=== PATIENT | female | born 1945 | race Caucasian/White ===

== ENCOUNTER 2023-02-27 14:16 | Inpatient (IN) | payer MEDICARE ==
[2023-02-27] MEDS ORDERED: traMADol HCl 50 MG TAB PO PRN (16:33)
[2023-02-27] MEDS ORDERED: Artificial Tear Sol 15 ML BOT EA EYE PRN (16:34)
[2023-02-27] MEDS ORDERED: Benzocaine/Menthol 1 LOZ LOZ PO PRN (16:34)
[2023-02-27] MEDS ORDERED: cloNIDine 0.1 MG TAB PO PRN (16:34)
[2023-02-27] MEDS ORDERED: Sodium Chloride 0.65% Nasal 44 ML BOT EA NARE PRN (16:34)
[2023-02-27] MEDS ORDERED: Benzonatate 100 MG CAP PO PRN (16:34)
[2023-02-27] MEDS ORDERED: Guaifenesin DM 100-10/5 ML UDCUP PO PRN (16:34)
[2023-02-27] MEDS ORDERED: Bisacodyl 5 MG TAB PO PRN (16:34)
[2023-02-27] MEDS ORDERED: Acetaminophen 650 MG Suppository PR PRN (16:34)
[2023-02-27] MEDS ORDERED: Senokot S 8.6-50 MG TAB PO PRN (16:34)
[2023-02-27] MEDS ORDERED: Calcium Carbonate 500 MG ChewTAB PO PRN (16:34)
[2023-02-27] MEDS ORDERED: Bisacodyl 10 MG SUPP PR PRN (16:34)
[2023-02-27] MEDS: traZODone HCl 50 MG TAB PO SCH (20:40)
[2023-02-27] MEDS: Gemfibrozil 600 MG TAB PO SCH (20:40)
[2023-02-27] MEDS: Aspirin 81 mg Enteric Coated Tablet PO SCH (20:41)
[2023-02-27] MEDS: Gabapentin 300 MG CAP PO SCH (20:41)
[2023-02-27] MEDS: Acetaminophen 325 MG TAB PO PRN (20:42)
[2023-02-27] MEDS: Amlodipine 5 MG TAB PO SCH (20:43)
[2023-02-27] MEDS: Calcium Carbonate 600 MG + Vit D TAB PO SCH (20:43)
[2023-02-27] MEDS: Ascorbic Acid 500 mg Chewable Tablet PO SCH (20:44)
[2023-02-27] MEDS: Zolpidem Tartrate 5 MG TAB PO SCH (20:47)
[2023-02-27] MEDS: ALPRAZolam 0.25 MG TAB PO PRN (20:57)
[2023-02-27] MEDS: IRON BIS GLYCINAT PO SCH (21:39)
[2023-02-27] MEDS: [UNRECOGNIZED DRUG - OTHER] PO SCH (21:39)
[2023-02-27] MEDS: VIT C PO SCH (21:39)
[2023-02-27] MEDS: B12 PO SCH (21:39)
[2023-02-28 06:19] LABS: #Eosinphils 0.3 thou/uL (0.0-0.7); #Lymphocytes 0.7 thou/uL (1.20-3.40); #Monocytes 0.5 thou/uL (0.11-0.59); #Neutrophils 3.9 thou/uL (1.40-6.50); %Basophils 0.9 % (0.0-1.0); %Eosinophils 4.7 % (0.0-10.0); %Lymphocytes 13.3 % (21.0-51.0); %Neutrophils 72.2 % (42.0-75.0); Mean Corpuscular HGB CONC 32.1 g/dL (32.0-36.0); Mean Platelet Volume 7.6 fL (7.4-10.4); Platelet Count 195 10x3/uL (130-400); RBC Distribution Width 13.4 % (11.5-14.5); Red Blood Cell (RBC) Count 2.43 mill/uL (4.20-5.40); White Blood Cell (WBC) Count 5.4 10x3/uL (4.8-10.8)
[2023-02-28 06:33] LABS: ALT (SGPT) 14 U/L (8-55); AST (SGOT) 16 U/L (5-34); Albumin 3.4 g/dL (3.4-4.8); Alkaline Phosphatase 59 U/L (40-110); Anion Gap 12 mmol/L (10-20); BUN (Urea Nitrogen) 14 mg/dL (9.8-20.1); Bilirubin, Total 0.4 mg/dL (0.2-1.2); Calc. Creatinine Clearance 76 mL/min (70-130); Calcium 8.9 mg/dL (7.8-10.44); Carbon Dioxide 23 mmol/L (23-31); Chloride 107 mmol/L (98-107); Estimated GFR 87; Globulin 2.7 g/dL (2.4-3.5); Glucose 125 mg/dL (83-110); Potassium 4.1 mmol/L (3.5-5.1); Protein, Total 6.1 g/dL (5.8-8.1); Sodium 138 mmol/L (136-145)
[2023-02-28] MEDS: Ferrous Sulfate 325 MG TAB PO SCH ×3 (07:06→16:29)
[2023-02-28] MEDS: Gemfibrozil 600 MG TAB PO SCH ×2 (08:20→20:46)
[2023-02-28] MEDS: Aspirin 81 mg Enteric Coated Tablet PO SCH ×2 (08:20→20:46)
[2023-02-28] MEDS: Ramipril 5 MG CAP PO SCH (08:20)
[2023-02-28] MEDS: Ascorbic Acid 500 mg Chewable Tablet PO SCH ×2 (08:20→20:46)
[2023-02-28] MEDS: Calcium Carbonate 600 MG + Vit D TAB PO SCH ×2 (08:20→20:46)
[2023-02-28] MEDS: Gabapentin 300 MG CAP PO SCH ×3 (08:20→20:49)
[2023-02-28] MEDS: Sertraline 100 MG TAB PO SCH (08:21)
[2023-02-28] MEDS: Famotidine 20 MG TAB PO SCH (08:21)
[2023-02-28] MEDS: Fluticasone Propionate Nasal Spray 16 gm Bottle NASAL SCH (08:21)
[2023-02-28] MEDS: B12 PO SCH (09:04)
[2023-02-28] MEDS: IRON BIS GLYCINAT PO SCH (09:04)
[2023-02-28] MEDS: VIT C PO SCH (09:04)
[2023-02-28] MEDS: [UNRECOGNIZED DRUG - OTHER] PO SCH (09:04)
[2023-02-28] MEDS: Ondansetron ODT 4 MG TAB PO PRN (11:51)
[2023-02-28] MEDS ORDERED: Ibuprofen 400 MG TAB PO PRN (19:24)
[2023-02-28] MEDS: Zolpidem Tartrate 5 MG TAB PO SCH (20:46)
[2023-02-28] MEDS: traZODone HCl 50 MG TAB PO SCH (20:46)
[2023-02-28] MEDS: Amlodipine 5 MG TAB PO SCH (20:47)
[2023-02-28] MEDS: Acetaminophen 325 MG TAB PO PRN (20:48)
[2023-03-01] MEDS: Fluticasone Propionate Nasal Spray 16 gm Bottle NASAL SCH (07:50)
[2023-03-01] MEDS: Gabapentin 300 MG CAP PO SCH ×3 (07:51→20:17)
[2023-03-01] MEDS: Ramipril 5 MG CAP PO SCH (07:51)
[2023-03-01] MEDS: Gemfibrozil 600 MG TAB PO SCH ×2 (07:51→20:16)
[2023-03-01] MEDS: Famotidine 20 MG TAB PO SCH (07:52)
[2023-03-01] MEDS: Calcium Carbonate 600 MG + Vit D TAB PO SCH ×2 (07:52→20:16)
[2023-03-01] MEDS: Sertraline 100 MG TAB PO SCH (07:52)
[2023-03-01] MEDS: Ferrous Sulfate 325 MG TAB PO SCH ×2 (07:52→16:06)
[2023-03-01] MEDS: Aspirin 81 mg Enteric Coated Tablet PO SCH ×2 (07:52→20:16)
[2023-03-01] MEDS: Ascorbic Acid 500 mg Chewable Tablet PO SCH ×2 (07:52→20:16)
[2023-03-01 10:32] LABS: Bilirubin Negative (Negative); Blood, Urine Negative (Negative); Clarity Clear (Clear); Glucose, Urine (Dipstick) Negative (Negative); Ketone, Urine Negative (Negative); Leukocyte Negative (Negative); Nitrite Negative (Negative); Protein, Urine (Dipstick) Negative (Neg-Trace)
[2023-03-01] MEDS: Ibuprofen 200 MG TAB PO PRN (12:55)
[2023-03-01] MEDS: Zolpidem Tartrate 5 MG TAB PO SCH (20:16)
[2023-03-01] MEDS: traZODone HCl 50 MG TAB PO SCH (20:16)
[2023-03-01] MEDS: Amlodipine 5 MG TAB PO SCH (20:17)
[2023-03-01] MEDS: ALPRAZolam 0.25 MG TAB PO PRN (22:48)
[2023-03-02] MEDS: Ascorbic Acid 500 mg Chewable Tablet PO SCH ×2 (07:56→21:00)
[2023-03-02] MEDS: Fluticasone Propionate Nasal Spray 16 gm Bottle NASAL SCH (07:56)
[2023-03-02] MEDS: Gabapentin 300 MG CAP PO SCH ×3 (07:57→20:57)
[2023-03-02] MEDS: Gemfibrozil 600 MG TAB PO SCH ×2 (07:57→20:57)
[2023-03-02] MEDS: Sertraline 100 MG TAB PO SCH (07:58)
[2023-03-02] MEDS: Ramipril 5 MG CAP PO SCH (07:59)
[2023-03-02] MEDS: Famotidine 20 MG TAB PO SCH (07:59)
[2023-03-02] MEDS: Calcium Carbonate 600 MG + Vit D TAB PO SCH ×2 (08:00→20:59)
[2023-03-02] MEDS: Ferrous Sulfate 325 MG TAB PO SCH ×2 (08:00→17:18)
[2023-03-02] MEDS: Aspirin 81 mg Enteric Coated Tablet PO SCH ×2 (08:01→20:58)
[2023-03-02] MEDS: traMADol HCl 50 MG TAB PO PRN (08:22)
[2023-03-02] MEDS: ALPRAZolam 0.25 MG TAB PO PRN ×2 (08:22→15:43)
[2023-03-02] MEDS: Zolpidem Tartrate 5 MG TAB PO SCH (20:57)
[2023-03-02] MEDS: traZODone HCl 50 MG TAB PO SCH (20:59)
[2023-03-02] MEDS: Amlodipine 5 MG TAB PO SCH (20:59)
[2023-03-03] MEDS: Famotidine 20 MG TAB PO SCH (08:34)
[2023-03-03] MEDS: Aspirin 81 mg Enteric Coated Tablet PO SCH ×2 (08:34→21:26)
[2023-03-03] MEDS: Calcium Carbonate 600 MG + Vit D TAB PO SCH ×2 (08:34→21:26)
[2023-03-03] MEDS: Ascorbic Acid 500 mg Chewable Tablet PO SCH ×2 (08:34→21:26)
[2023-03-03] MEDS: Gemfibrozil 600 MG TAB PO SCH ×2 (08:34→21:26)
[2023-03-03] MEDS: Ferrous Sulfate 325 MG TAB PO SCH ×2 (08:34→17:11)
[2023-03-03] MEDS: Sertraline 100 MG TAB PO SCH (08:35)
[2023-03-03] MEDS: Ramipril 5 MG CAP PO SCH (08:36)
[2023-03-03] MEDS: Gabapentin 300 MG CAP PO SCH ×3 (08:36→21:24)
[2023-03-03] MEDS: Fluticasone Propionate Nasal Spray 16 gm Bottle NASAL SCH (08:37)
[2023-03-03] MEDS: Ibuprofen 200 MG TAB PO PRN (08:46)
[2023-03-03] MEDS: ALPRAZolam 0.25 MG TAB PO PRN ×2 (08:46→21:25)
[2023-03-03] MEDS: Amlodipine 5 MG TAB PO SCH (21:25)
[2023-03-03] MEDS: traZODone HCl 50 MG TAB PO SCH (21:25)
[2023-03-03] MEDS: Zolpidem Tartrate 5 MG TAB PO SCH (21:26)
[2023-03-03] MEDS: Acetaminophen 325 MG TAB PO PRN (21:34)
[2023-03-04] MEDS: Ferrous Sulfate 325 MG TAB PO SCH ×2 (08:47→16:39)
[2023-03-04] MEDS: Sertraline 100 MG TAB PO SCH (08:47)
[2023-03-04] MEDS: Gemfibrozil 600 MG TAB PO SCH ×2 (08:48→21:05)
[2023-03-04] MEDS: Ascorbic Acid 500 mg Chewable Tablet PO SCH ×2 (08:50→21:06)
[2023-03-04] MEDS: Famotidine 20 MG TAB PO SCH (08:50)
[2023-03-04] MEDS: Calcium Carbonate 600 MG + Vit D TAB PO SCH ×2 (08:51→21:06)
[2023-03-04] MEDS: Aspirin 81 mg Enteric Coated Tablet PO SCH ×2 (08:51→21:06)
[2023-03-04] MEDS: Gabapentin 300 MG CAP PO SCH ×3 (08:52→21:04)
[2023-03-04] MEDS: Ramipril 5 MG CAP PO SCH (08:52)
[2023-03-04] MEDS: Fluticasone Propionate Nasal Spray 16 gm Bottle NASAL SCH (08:54)
[2023-03-04 09:33] LABS: Anion Gap 16 mmol/L (10-20); BUN (Urea Nitrogen) 18 mg/dL (9.8-20.1); Calc. Creatinine Clearance 71 mL/min (70-130); Calcium 9.7 mg/dL (7.8-10.44); Carbon Dioxide 21 mmol/L (23-31); Chloride 108 mmol/L (98-107); Estimated GFR 80; Glucose 134 mg/dL (83-110); Potassium 3.9 mmol/L (3.5-5.1); Sodium 141 mmol/L (136-145)
[2023-03-04 10:02] LABS: #Basophils 0.1 thou/uL (0.0-0.2); #Eosinphils 0.4 thou/uL (0.0-0.7); #Lymphocytes 0.8 thou/uL (1.20-3.40); #Monocytes 0.3 thou/uL (0.11-0.59); #Neutrophils 4.9 thou/uL (1.40-6.50); %Eosinophils 6.1 % (0.0-10.0); %Lymphocytes 11.9 % (21.0-51.0); %Monocytes 4.9 % (0.0-10.0); %Neutrophils 76.1 % (42.0-75.0); Hematocrit 31.1 % (36.0-47.0); Mean Corpuscular HGB CONC 32.1 g/dL (32.0-36.0); Platelet Count 291 10x3/uL (130-400); RBC Distribution Width 15.8 % (11.5-14.5); Red Blood Cell (RBC) Count 2.85 mill/uL (4.20-5.40); White Blood Cell (WBC) Count 6.4 10x3/uL (4.8-10.8)
[2023-03-04] MEDS: ALPRAZolam 0.25 MG TAB PO PRN ×2 (15:07→21:06)
[2023-03-04] MEDS: traMADol HCl 50 MG TAB PO PRN (15:09)
[2023-03-04] MEDS: Amlodipine 5 MG TAB PO SCH (21:05)
[2023-03-04] MEDS: traZODone HCl 50 MG TAB PO SCH (21:05)
[2023-03-04] MEDS: Zolpidem Tartrate 5 MG TAB PO SCH (21:06)
[2023-03-05] MEDS: Ramipril 5 MG CAP PO SCH (08:25)
[2023-03-05] MEDS: Gemfibrozil 600 MG TAB PO SCH ×2 (08:26→20:29)
[2023-03-05] MEDS: Ascorbic Acid 500 mg Chewable Tablet PO SCH ×2 (08:26→20:31)
[2023-03-05] MEDS: Aspirin 81 mg Enteric Coated Tablet PO SCH ×2 (08:26→20:30)
[2023-03-05] MEDS: Famotidine 20 MG TAB PO SCH (08:26)
[2023-03-05] MEDS: Sertraline 100 MG TAB PO SCH (08:26)
[2023-03-05] MEDS: Gabapentin 300 MG CAP PO SCH ×3 (08:27→20:29)
[2023-03-05] MEDS: Fluticasone Propionate Nasal Spray 16 gm Bottle NASAL SCH (08:27)
[2023-03-05] MEDS: Calcium Carbonate 600 MG + Vit D TAB PO SCH ×2 (08:27→20:31)
[2023-03-05] MEDS: Ferrous Sulfate 325 MG TAB PO SCH ×2 (08:27→16:16)
[2023-03-05] MEDS: ALPRAZolam 0.25 MG TAB PO PRN (17:10)
[2023-03-05] MEDS: Zolpidem Tartrate 5 MG TAB PO SCH (20:29)
[2023-03-05] MEDS: traZODone HCl 50 MG TAB PO SCH (20:29)
[2023-03-05] MEDS: Amlodipine 5 MG TAB PO SCH (20:30)
[2023-03-06 06:26] LABS: #Basophils 0.1 thou/uL (0.0-0.2); #Eosinphils 0.3 thou/uL (0.0-0.7); #Lymphocytes 0.7 thou/uL (1.20-3.40); #Monocytes 0.4 thou/uL (0.11-0.59); #Neutrophils 4.6 thou/uL (1.40-6.50); %Basophils 1.3 % (0.0-1.0); %Eosinophils 5.2 % (0.0-10.0); %Lymphocytes 11.1 % (21.0-51.0); %Monocytes 7.2 % (0.0-10.0); %Neutrophils 75.2 % (42.0-75.0); Hematocrit 31.5 % (36.0-47.0); Hemoglobin 10.3 g/dL (12.0-16.0); Mean Corpuscular HGB CONC 32.7 g/dL (32.0-36.0); Mean Corpuscular Hemoglobin 35.3 pg (27.0-31.0); Mean Platelet Volume 8.5 fL (7.4-10.4); Platelet Count 312 10x3/uL (130-400); RBC Distribution Width 15.7 % (11.5-14.5); Red Blood Cell (RBC) Count 2.92 mill/uL (4.20-5.40); White Blood Cell (WBC) Count 6.1 10x3/uL (4.8-10.8)
[2023-03-06 06:34] LABS: Anion Gap 14 mmol/L (10-20); BUN (Urea Nitrogen) 15 mg/dL (9.8-20.1); Calc. Creatinine Clearance 72 mL/min (70-130); Calcium 9.6 mg/dL (7.8-10.44); Carbon Dioxide 26 mmol/L (23-31); Chloride 104 mmol/L (98-107); Estimated GFR 80; Glucose 113 mg/dL (83-110); Potassium 4.5 mmol/L (3.5-5.1); Sodium 139 mmol/L (136-145)
[2023-03-06] MEDS: Gabapentin 300 MG CAP PO SCH ×3 (08:42→20:30)
[2023-03-06] MEDS: Ramipril 5 MG CAP PO SCH (08:43)
[2023-03-06] MEDS: Gemfibrozil 600 MG TAB PO SCH ×2 (08:43→20:30)
[2023-03-06] MEDS: Famotidine 20 MG TAB PO SCH (08:43)
[2023-03-06] MEDS: Ferrous Sulfate 325 MG TAB PO SCH ×2 (08:43→17:27)
[2023-03-06] MEDS: Aspirin 81 mg Enteric Coated Tablet PO SCH ×2 (08:43→20:31)
[2023-03-06] MEDS: Calcium Carbonate 600 MG + Vit D TAB PO SCH ×2 (08:43→20:30)
[2023-03-06] MEDS: Fluticasone Propionate Nasal Spray 16 gm Bottle NASAL SCH (08:44)
[2023-03-06] MEDS: Ascorbic Acid 500 mg Chewable Tablet PO SCH ×2 (08:44→20:31)
[2023-03-06] MEDS: Sertraline 100 MG TAB PO SCH (08:44)
[2023-03-06] MEDS ORDERED: Ibuprofen 200 MG TAB ONE (11:20)
[2023-03-06] MEDS: Ibuprofen 200 MG TAB PO PRN ×2 (11:22→20:40)
[2023-03-06] MEDS: ALPRAZolam 0.25 MG TAB PO PRN (19:15)
[2023-03-06] MEDS: traZODone HCl 50 MG TAB PO SCH (20:29)
[2023-03-06] MEDS: Zolpidem Tartrate 5 MG TAB PO SCH (20:29)
[2023-03-06] MEDS: Amlodipine 5 MG TAB PO SCH (20:31)
[2023-03-07] MEDS: traMADol HCl 50 MG TAB PO PRN (09:20)
[2023-03-07] MEDS: ALPRAZolam 0.25 MG TAB PO PRN (09:21)
[2023-03-07] MEDS: Gabapentin 300 MG CAP PO SCH ×3 (09:22→21:22)
[2023-03-07] MEDS: Gemfibrozil 600 MG TAB PO SCH ×2 (09:22→21:22)
[2023-03-07] MEDS: Ramipril 5 MG CAP PO SCH (09:23)
[2023-03-07] MEDS: Calcium Carbonate 600 MG + Vit D TAB PO SCH ×2 (09:23→21:22)
[2023-03-07] MEDS: Famotidine 20 MG TAB PO SCH (09:24)
[2023-03-07] MEDS: Ascorbic Acid 500 mg Chewable Tablet PO SCH ×2 (09:25→21:22)
[2023-03-07] MEDS: Aspirin 81 mg Enteric Coated Tablet PO SCH ×2 (09:25→21:22)
[2023-03-07] MEDS: Sertraline 100 MG TAB PO SCH (09:25)
[2023-03-07] MEDS: Ferrous Sulfate 325 MG TAB PO SCH ×2 (09:26→16:23)
[2023-03-07] MEDS: Fluticasone Propionate Nasal Spray 16 gm Bottle NASAL SCH (09:28)
[2023-03-07] MEDS: traZODone HCl 50 MG TAB PO SCH (21:21)
[2023-03-07] MEDS: Zolpidem Tartrate 5 MG TAB PO SCH (21:21)
[2023-03-07] MEDS: Amlodipine 5 MG TAB PO SCH (21:21)
[2023-03-08] MEDS: Gabapentin 300 MG CAP PO SCH ×3 (08:01→20:43)
[2023-03-08] MEDS: Gemfibrozil 600 MG TAB PO SCH ×2 (08:02→20:43)
[2023-03-08] MEDS: Calcium Carbonate 600 MG + Vit D TAB PO SCH ×2 (08:02→20:46)
[2023-03-08] MEDS: Aspirin 81 mg Enteric Coated Tablet PO SCH ×2 (08:02→20:46)
[2023-03-08] MEDS: Ascorbic Acid 500 mg Chewable Tablet PO SCH ×2 (08:02→20:44)
[2023-03-08] MEDS: Ramipril 5 MG CAP PO SCH (08:02)
[2023-03-08] MEDS: Sertraline 100 MG TAB PO SCH (08:02)
[2023-03-08] MEDS: Famotidine 20 MG TAB PO SCH (08:02)
[2023-03-08] MEDS: Ferrous Sulfate 325 MG TAB PO SCH ×2 (08:02→16:47)
[2023-03-08] MEDS: Fluticasone Propionate Nasal Spray 16 gm Bottle NASAL SCH (08:04)
[2023-03-08] MEDS: Ibuprofen 200 MG TAB PO PRN ×2 (08:07→19:26)
[2023-03-08] MEDS: Ondansetron ODT 4 MG TAB PO PRN (09:32)
[2023-03-08] MEDS: ALPRAZolam 0.25 MG TAB PO PRN ×2 (11:57→20:43)
[2023-03-08] MEDS: traZODone HCl 50 MG TAB PO SCH (20:43)
[2023-03-08] MEDS: Zolpidem Tartrate 5 MG TAB PO SCH (20:43)
[2023-03-08] MEDS: Amlodipine 5 MG TAB PO SCH (20:46)
[2023-03-09] MEDS: Ramipril 5 MG CAP PO SCH (08:24)
[2023-03-09] MEDS: Famotidine 20 MG TAB PO SCH (08:24)
[2023-03-09] MEDS: Gabapentin 300 MG CAP PO SCH ×3 (08:24→20:16)
[2023-03-09] MEDS: Ascorbic Acid 500 mg Chewable Tablet PO SCH ×2 (08:24→20:16)
[2023-03-09] MEDS: Gemfibrozil 600 MG TAB PO SCH ×2 (08:24→20:17)
[2023-03-09] MEDS: Calcium Carbonate 600 MG + Vit D TAB PO SCH ×2 (08:24→20:16)
[2023-03-09] MEDS: Sertraline 100 MG TAB PO SCH (08:24)
[2023-03-09] MEDS: Aspirin 81 mg Enteric Coated Tablet PO SCH ×2 (08:24→20:16)
[2023-03-09] MEDS: Ferrous Sulfate 325 MG TAB PO SCH ×2 (08:24→16:40)
[2023-03-09] MEDS: Fluticasone Propionate Nasal Spray 16 gm Bottle NASAL SCH (08:25)
[2023-03-09] MEDS: Ibuprofen 200 MG TAB PO PRN (10:21)
[2023-03-09] MEDS: Amlodipine 5 MG TAB PO SCH (20:16)
[2023-03-09] MEDS: traZODone HCl 50 MG TAB PO SCH (20:17)
[2023-03-09] MEDS: Zolpidem Tartrate 5 MG TAB PO SCH (20:17)
[2023-03-09] MEDS: ALPRAZolam 0.25 MG TAB PO PRN (20:58)
[2023-03-10] MEDS: Famotidine 20 MG TAB PO SCH (08:23)
[2023-03-10] MEDS: Gabapentin 300 MG CAP PO SCH ×3 (08:23→20:19)
[2023-03-10] MEDS: Ramipril 5 MG CAP PO SCH (08:23)
[2023-03-10] MEDS: Gemfibrozil 600 MG TAB PO SCH ×2 (08:24→20:18)
[2023-03-10] MEDS: Calcium Carbonate 600 MG + Vit D TAB PO SCH ×2 (08:24→20:18)
[2023-03-10] MEDS: Ascorbic Acid 500 mg Chewable Tablet PO SCH ×2 (08:24→20:18)
[2023-03-10] MEDS: Fluticasone Propionate Nasal Spray 16 gm Bottle NASAL SCH (08:24)
[2023-03-10] MEDS: Sertraline 100 MG TAB PO SCH (08:24)
[2023-03-10] MEDS: Ferrous Sulfate 325 MG TAB PO SCH ×2 (08:24→16:44)
[2023-03-10] MEDS: Aspirin 81 mg Enteric Coated Tablet PO SCH ×2 (08:24→20:19)
[2023-03-10] MEDS: Ibuprofen 200 MG TAB PO PRN ×2 (08:29→16:44)
[2023-03-10] MEDS: traZODone HCl 50 MG TAB PO SCH (20:18)
[2023-03-10] MEDS: Amlodipine 5 MG TAB PO SCH (20:18)
[2023-03-10] MEDS: ALPRAZolam 0.25 MG TAB PO PRN (20:18)
[2023-03-10] MEDS: Zolpidem Tartrate 5 MG TAB PO SCH (20:19)
[2023-03-10] MEDS: Gabapentin 300 MG CAP PO PRN (20:22)
[2023-03-11] MEDS: Fluticasone Propionate Nasal Spray 16 gm Bottle NASAL SCH (08:09)
[2023-03-11] MEDS: Gemfibrozil 600 MG TAB PO SCH ×2 (08:10→20:42)
[2023-03-11] MEDS: Gabapentin 300 MG CAP PO SCH ×3 (08:10→20:41)
[2023-03-11] MEDS: Sertraline 100 MG TAB PO SCH (08:10)
[2023-03-11] MEDS: Ramipril 5 MG CAP PO SCH (08:10)
[2023-03-11] MEDS: Famotidine 20 MG TAB PO SCH (08:10)
[2023-03-11] MEDS: Calcium Carbonate 600 MG + Vit D TAB PO SCH ×2 (08:11→20:42)
[2023-03-11] MEDS: Ferrous Sulfate 325 MG TAB PO SCH ×2 (08:11→17:07)
[2023-03-11] MEDS: Aspirin 81 mg Enteric Coated Tablet PO SCH ×2 (08:11→20:43)
[2023-03-11] MEDS: Ascorbic Acid 500 mg Chewable Tablet PO SCH ×2 (08:11→20:40)
[2023-03-11] MEDS: Dicyclomine 10 MG CAP PO PRN (10:12)
[2023-03-11] MEDS: Ibuprofen 200 MG TAB PO PRN (14:13)
[2023-03-11] MEDS: traMADol HCl 50 MG TAB PO PRN (14:46)
[2023-03-11] MEDS: ALPRAZolam 0.25 MG TAB PO PRN ×2 (14:47→20:43)
[2023-03-11] MEDS: Amlodipine 5 MG TAB PO SCH (20:41)
[2023-03-11] MEDS: traZODone HCl 50 MG TAB PO SCH (20:42)
[2023-03-11] MEDS: Gabapentin 300 MG CAP PO PRN (20:44)
[2023-03-11] MEDS: Zolpidem Tartrate 5 MG TAB PO SCH (20:44)
[2023-03-12] MEDS: Gemfibrozil 600 MG TAB PO SCH ×2 (08:17→20:22)
[2023-03-12] MEDS: Gabapentin 300 MG CAP PO SCH ×3 (08:17→20:22)
[2023-03-12] MEDS: Famotidine 20 MG TAB PO SCH (08:17)
[2023-03-12] MEDS: Ramipril 5 MG CAP PO SCH (08:17)
[2023-03-12] MEDS: Calcium Carbonate 600 MG + Vit D TAB PO SCH ×2 (08:17→20:22)
[2023-03-12] MEDS: Aspirin 81 mg Enteric Coated Tablet PO SCH ×2 (08:18→20:22)
[2023-03-12] MEDS: Ferrous Sulfate 325 MG TAB PO SCH ×2 (08:18→16:57)
[2023-03-12] MEDS: Ascorbic Acid 500 mg Chewable Tablet PO SCH ×2 (08:18→20:22)
[2023-03-12] MEDS: Sertraline 100 MG TAB PO SCH (08:18)
[2023-03-12] MEDS: Fluticasone Propionate Nasal Spray 16 gm Bottle NASAL SCH (08:19)
[2023-03-12] MEDS: ALPRAZolam 0.25 MG TAB PO PRN ×2 (11:32→20:21)
[2023-03-12] MEDS: Dicyclomine 10 MG CAP PO PRN (14:20)
[2023-03-12] MEDS: Ibuprofen 200 MG TAB PO PRN (14:22)
[2023-03-12] MEDS: Zolpidem Tartrate 5 MG TAB PO SCH (20:22)
[2023-03-12] MEDS: Gabapentin 300 MG CAP PO PRN (20:22)
[2023-03-12] MEDS: traZODone HCl 50 MG TAB PO SCH (20:22)
[2023-03-12] MEDS: Amlodipine 5 MG TAB PO SCH (20:22)
[2023-03-13] MEDS: Gabapentin 300 MG CAP PO SCH ×3 (08:07→21:25)
[2023-03-13] MEDS: Famotidine 20 MG TAB PO SCH (08:07)
[2023-03-13] MEDS: Ferrous Sulfate 325 MG TAB PO SCH ×2 (08:07→16:53)
[2023-03-13] MEDS: Ramipril 5 MG CAP PO SCH (08:07)
[2023-03-13] MEDS: Aspirin 81 mg Enteric Coated Tablet PO SCH ×2 (08:07→21:25)
[2023-03-13] MEDS: Calcium Carbonate 600 MG + Vit D TAB PO SCH ×2 (08:07→21:24)
[2023-03-13] MEDS: Ascorbic Acid 500 mg Chewable Tablet PO SCH ×2 (08:07→21:25)
[2023-03-13] MEDS: Gemfibrozil 600 MG TAB PO SCH ×2 (08:07→21:25)
[2023-03-13] MEDS: Sertraline 100 MG TAB PO SCH (08:08)
[2023-03-13] MEDS: Fluticasone Propionate Nasal Spray 16 gm Bottle NASAL SCH (08:08)
[2023-03-13] MEDS: Ibuprofen 200 MG TAB PO PRN ×2 (09:48→23:00)
[2023-03-13 10:25] LABS: #Basophils 0.1 thou/uL (0.0-0.2); #Eosinphils 0.3 thou/uL (0.0-0.7); #Lymphocytes 0.7 thou/uL (1.20-3.40); #Monocytes 0.4 thou/uL (0.11-0.59); #Neutrophils 4.6 thou/uL (1.40-6.50); %Basophils 1.7 % (0.0-1.0); %Eosinophils 5.3 % (0.0-10.0); %Lymphocytes 12.2 % (21.0-51.0); %Monocytes 6.4 % (0.0-10.0); %Neutrophils 74.5 % (42.0-75.0); Anion Gap 16 mmol/L (10-20); BUN (Urea Nitrogen) 20 mg/dL (9.8-20.1); Calc. Creatinine Clearance 68 mL/min (70-130); Calcium 9.9 mg/dL (7.8-10.44); Carbon Dioxide 20 mmol/L (23-31); Chloride 108 mmol/L (98-107); Estimated GFR 77; Glucose 127 mg/dL (83-110); Hematocrit 36.9 % (36.0-47.0); Hemoglobin 11.6 g/dL (12.0-16.0); Mean Corpuscular HGB CONC 31.6 g/dL (32.0-36.0); Mean Corpuscular Hemoglobin 34.9 pg (27.0-31.0); Mean Platelet Volume 8.4 fL (7.4-10.4); Platelet Count 357 10x3/uL (130-400); Potassium 4.2 mmol/L (3.5-5.1); RBC Distribution Width 15.3 % (11.5-14.5); Red Blood Cell (RBC) Count 3.34 mill/uL (4.20-5.40); Sodium 140 mmol/L (136-145); White Blood Cell (WBC) Count 6.1 10x3/uL (4.8-10.8)
[2023-03-13] MEDS: traZODone HCl 50 MG TAB PO SCH (21:24)
[2023-03-13] MEDS: Amlodipine 5 MG TAB PO SCH (21:24)
[2023-03-13] MEDS: Zolpidem Tartrate 5 MG TAB PO SCH (21:24)
[2023-03-13] MEDS: ALPRAZolam 0.25 MG TAB PO PRN (21:25)
[2023-03-13] MEDS: Gabapentin 300 MG CAP PO PRN (21:25)
[2023-03-14] MEDS: Ascorbic Acid 500 mg Chewable Tablet PO SCH ×2 (08:18→21:17)
[2023-03-14] MEDS: Gabapentin 300 MG CAP PO SCH ×3 (08:18→21:17)
[2023-03-14] MEDS: Calcium Carbonate 600 MG + Vit D TAB PO SCH ×2 (08:18→21:16)
[2023-03-14] MEDS: Ferrous Sulfate 325 MG TAB PO SCH ×2 (08:18→16:50)
[2023-03-14] MEDS: Aspirin 81 mg Enteric Coated Tablet PO SCH ×2 (08:18→21:17)
[2023-03-14] MEDS: Famotidine 20 MG TAB PO SCH (08:18)
[2023-03-14] MEDS: Fluticasone Propionate Nasal Spray 16 gm Bottle NASAL SCH (08:20)
[2023-03-14] MEDS: Ramipril 5 MG CAP PO SCH (08:20)
[2023-03-14] MEDS: Gemfibrozil 600 MG TAB PO SCH ×2 (08:20→21:16)
[2023-03-14] MEDS: Sertraline 100 MG TAB PO SCH (08:20)
[2023-03-14] MEDS: Ibuprofen 200 MG TAB PO PRN (08:35)
[2023-03-14] MEDS: Dicyclomine 10 MG CAP PO PRN (11:21)
[2023-03-14] MEDS: ALPRAZolam 0.25 MG TAB PO PRN ×2 (14:56→21:22)
[2023-03-14] MEDS: Amlodipine 5 MG TAB PO SCH (21:16)
[2023-03-14] MEDS: traZODone HCl 50 MG TAB PO SCH (21:16)
[2023-03-14] MEDS: Zolpidem Tartrate 5 MG TAB PO SCH (21:17)
[2023-03-14] MEDS: Gabapentin 300 MG CAP PO PRN (21:52)
[2023-03-15] MEDS: Ferrous Sulfate 325 MG TAB PO SCH ×2 (08:50→17:15)
[2023-03-15] MEDS: Ascorbic Acid 500 mg Chewable Tablet PO SCH ×2 (08:51→20:39)
[2023-03-15] MEDS: Aspirin 81 mg Enteric Coated Tablet PO SCH ×2 (08:51→20:39)
[2023-03-15] MEDS: Calcium Carbonate 600 MG + Vit D TAB PO SCH ×2 (08:51→20:39)
[2023-03-15] MEDS: Famotidine 20 MG TAB PO SCH (08:51)
[2023-03-15] MEDS: Gemfibrozil 600 MG TAB PO SCH ×2 (08:51→20:39)
[2023-03-15] MEDS: Sertraline 100 MG TAB PO SCH (08:52)
[2023-03-15] MEDS: Gabapentin 300 MG CAP PO SCH ×3 (08:53→20:40)
[2023-03-15] MEDS: Ramipril 5 MG CAP PO SCH (08:53)
[2023-03-15] MEDS: Fluticasone Propionate Nasal Spray 16 gm Bottle NASAL SCH (08:55)
[2023-03-15] MEDS: ALPRAZolam 0.25 MG TAB PO PRN ×2 (09:00→20:39)
[2023-03-15] MEDS: traZODone HCl 50 MG TAB PO SCH (20:38)
[2023-03-15] MEDS: Zolpidem Tartrate 5 MG TAB PO SCH (20:39)
[2023-03-15] MEDS: Amlodipine 5 MG TAB PO SCH (20:40)
[2023-03-15] MEDS: Gabapentin 300 MG CAP PO PRN (21:21)
[2023-03-16] MEDS: Fluticasone Propionate Nasal Spray 16 gm Bottle NASAL SCH (08:26)
[2023-03-16] MEDS: Gemfibrozil 600 MG TAB PO SCH ×2 (08:27→20:37)
[2023-03-16] MEDS: Famotidine 20 MG TAB PO SCH (08:27)
[2023-03-16] MEDS: Calcium Carbonate 600 MG + Vit D TAB PO SCH ×2 (08:27→20:37)
[2023-03-16] MEDS: Ferrous Sulfate 325 MG TAB PO SCH ×2 (08:27→17:27)
[2023-03-16] MEDS: Ascorbic Acid 500 mg Chewable Tablet PO SCH ×2 (08:27→20:39)
[2023-03-16] MEDS: Sertraline 100 MG TAB PO SCH (08:27)
[2023-03-16] MEDS: Aspirin 81 mg Enteric Coated Tablet PO SCH ×2 (08:27→20:36)
[2023-03-16] MEDS: Ramipril 5 MG CAP PO SCH (08:29)
[2023-03-16] MEDS: Gabapentin 300 MG CAP PO SCH ×3 (08:30→20:38)
[2023-03-16] MEDS: Dicyclomine 10 MG CAP PO PRN (08:38)
[2023-03-16] MEDS: ALPRAZolam 0.25 MG TAB PO PRN ×2 (08:38→20:37)
[2023-03-16] MEDS: Ibuprofen 200 MG TAB PO PRN (20:05)
[2023-03-16] MEDS: Zolpidem Tartrate 5 MG TAB PO SCH (20:36)
[2023-03-16] MEDS: traZODone HCl 50 MG TAB PO SCH (20:36)
[2023-03-16] MEDS: Amlodipine 5 MG TAB PO SCH (20:38)
[2023-03-16] MEDS: Gabapentin 300 MG CAP PO PRN (20:41)
[2023-03-17] MEDS: Fluticasone Propionate Nasal Spray 16 gm Bottle NASAL SCH (08:41)
[2023-03-17] MEDS: Sertraline 100 MG TAB PO SCH (08:42)
[2023-03-17] MEDS: Gemfibrozil 600 MG TAB PO SCH ×2 (08:42→20:52)
[2023-03-17] MEDS: Famotidine 20 MG TAB PO SCH (08:42)
[2023-03-17] MEDS: Calcium Carbonate 600 MG + Vit D TAB PO SCH ×2 (08:42→20:54)
[2023-03-17] MEDS: Ramipril 5 MG CAP PO SCH (08:43)
[2023-03-17] MEDS: Ferrous Sulfate 325 MG TAB PO SCH ×2 (08:45→16:48)
[2023-03-17] MEDS: Aspirin 81 mg Enteric Coated Tablet PO SCH ×2 (08:45→20:52)
[2023-03-17] MEDS: Ascorbic Acid 500 mg Chewable Tablet PO SCH ×2 (08:45→20:53)
[2023-03-17] MEDS: Gabapentin 300 MG CAP PO SCH ×3 (08:45→20:52)
[2023-03-17] MEDS: Acetaminophen 325 MG TAB PO PRN (08:46)
[2023-03-17] MEDS: traMADol HCl 50 MG TAB PO PRN ×2 (14:00→20:51)
[2023-03-17] MEDS: Zolpidem Tartrate 5 MG TAB PO SCH (20:52)
[2023-03-17] MEDS: Amlodipine 5 MG TAB PO SCH (20:53)
[2023-03-17] MEDS: traZODone HCl 50 MG TAB PO SCH (20:53)
[2023-03-17] MEDS: ALPRAZolam 0.25 MG TAB PO PRN (20:54)
[2023-03-18] MEDS: Calcium Carbonate 600 MG + Vit D TAB PO SCH ×2 (08:12→20:08)
[2023-03-18] MEDS: Ferrous Sulfate 325 MG TAB PO SCH ×2 (08:12→16:36)
[2023-03-18] MEDS: Famotidine 20 MG TAB PO SCH (08:12)
[2023-03-18] MEDS: Ascorbic Acid 500 mg Chewable Tablet PO SCH ×2 (08:13→20:08)
[2023-03-18] MEDS: Sertraline 100 MG TAB PO SCH (08:13)
[2023-03-18] MEDS: Aspirin 81 mg Enteric Coated Tablet PO SCH ×2 (08:13→20:08)
[2023-03-18] MEDS: Gemfibrozil 600 MG TAB PO SCH ×2 (08:15→20:10)
[2023-03-18] MEDS: Gabapentin 300 MG CAP PO SCH ×3 (08:15→20:11)
[2023-03-18] MEDS: Fluticasone Propionate Nasal Spray 16 gm Bottle NASAL SCH (08:16)
[2023-03-18] MEDS: Ramipril 5 MG CAP PO SCH (08:21)
[2023-03-18] MEDS: traMADol HCl 50 MG TAB PO PRN ×2 (13:43→20:22)
[2023-03-18] MEDS: traZODone HCl 50 MG TAB PO SCH (20:08)
[2023-03-18] MEDS: ALPRAZolam 0.25 MG TAB PO PRN (20:08)
[2023-03-18] MEDS: Amlodipine 5 MG TAB PO SCH (20:08)
[2023-03-18] MEDS: Zolpidem Tartrate 5 MG TAB PO SCH (20:10)
[2023-03-19 05:17] VITALS: BMI 28.3
[2023-03-19] MEDS: Gemfibrozil 600 MG TAB PO SCH ×2 (07:49→20:23)
[2023-03-19] MEDS: Gabapentin 300 MG CAP PO SCH ×3 (07:50→20:25)
[2023-03-19] MEDS: Ascorbic Acid 500 mg Chewable Tablet PO SCH ×2 (07:52→20:24)
[2023-03-19] MEDS: Sertraline 100 MG TAB PO SCH (07:52)
[2023-03-19] MEDS: Calcium Carbonate 600 MG + Vit D TAB PO SCH ×2 (07:52→20:24)
[2023-03-19] MEDS: Ferrous Sulfate 325 MG TAB PO SCH ×2 (07:53→17:17)
[2023-03-19] MEDS: Aspirin 81 mg Enteric Coated Tablet PO SCH ×2 (07:53→20:24)
[2023-03-19] MEDS: Famotidine 20 MG TAB PO SCH (07:53)
[2023-03-19] MEDS: Fluticasone Propionate Nasal Spray 16 gm Bottle NASAL SCH (07:54)
[2023-03-19] MEDS: Ramipril 5 MG CAP PO SCH (09:51)
[2023-03-19] MEDS: Zolpidem Tartrate 5 MG TAB PO SCH (20:23)
[2023-03-19] MEDS: Amlodipine 5 MG TAB PO SCH (20:23)
[2023-03-19] MEDS: ALPRAZolam 0.25 MG TAB PO PRN (20:24)
[2023-03-19] MEDS: traZODone HCl 50 MG TAB PO SCH (20:24)
[2023-03-19] MEDS: traMADol HCl 50 MG TAB PO PRN (20:25)
[2023-03-20 05:57] LABS: #Eosinphils 0.3 thou/uL (0.0-0.7); #Lymphocytes 0.8 thou/uL (1.20-3.40); #Monocytes 0.5 thou/uL (0.11-0.59); #Neutrophils 2.8 thou/uL (1.40-6.50); %Basophils 0.9 % (0.0-1.0); %Lymphocytes 17.2 % (21.0-51.0); %Monocytes 11.1 % (0.0-10.0); %Neutrophils 63.8 % (42.0-75.0); Hematocrit 33.6 % (36.0-47.0); Hemoglobin 11.1 g/dL (12.0-16.0); Mean Corpuscular HGB CONC 33.2 g/dL (32.0-36.0); Mean Corpuscular Hemoglobin 35.9 pg (27.0-31.0); Mean Platelet Volume 8.4 fL (7.4-10.4); Platelet Count 200 10x3/uL (130-400); RBC Distribution Width 14.2 % (11.5-14.5); White Blood Cell (WBC) Count 4.4 10x3/uL (4.8-10.8)
[2023-03-20 06:07] LABS: Anion Gap 14 mmol/L (10-20); Calc. Creatinine Clearance 73 mL/min (70-130); Carbon Dioxide 22 mmol/L (23-31); Chloride 107 mmol/L (98-107); Estimated GFR 82; Glucose 105 mg/dL (83-110); Potassium 4.3 mmol/L (3.5-5.1); Sodium 139 mmol/L (136-145)
[2023-03-20] MEDS: traMADol HCl 50 MG TAB PO PRN ×2 (08:48→20:52)
[2023-03-20] MEDS: Aspirin 81 mg Enteric Coated Tablet PO SCH ×2 (08:50→20:51)
[2023-03-20] MEDS: Fluticasone Propionate Nasal Spray 16 gm Bottle NASAL SCH (08:50)
[2023-03-20] MEDS: Gabapentin 300 MG CAP PO SCH ×3 (08:51→20:53)
[2023-03-20] MEDS: Sertraline 100 MG TAB PO SCH (08:51)
[2023-03-20] MEDS: Ramipril 5 MG CAP PO SCH (08:52)
[2023-03-20] MEDS: Ferrous Sulfate 325 MG TAB PO SCH ×2 (08:52→17:08)
[2023-03-20] MEDS: Gemfibrozil 600 MG TAB PO SCH ×2 (08:52→20:51)
[2023-03-20] MEDS: Famotidine 20 MG TAB PO SCH (08:52)
[2023-03-20] MEDS: Ascorbic Acid 500 mg Chewable Tablet PO SCH ×2 (08:53→20:51)
[2023-03-20] MEDS: Calcium Carbonate 600 MG + Vit D TAB PO SCH ×2 (08:53→20:51)
[2023-03-20 12:43] LABS: BUN (Urea Nitrogen) 20 mg/dL (9.8-20.1)
[2023-03-20] MEDS: traZODone HCl 50 MG TAB PO SCH (20:50)
[2023-03-20] MEDS: Amlodipine 5 MG TAB PO SCH (20:51)
[2023-03-20] MEDS: Zolpidem Tartrate 5 MG TAB PO SCH (20:51)
[2023-03-20] MEDS: ALPRAZolam 0.25 MG TAB PO PRN (20:51)
[2023-03-21 08:21] VITALS: TEMP 97.8
[2023-03-21] MEDS: Calcium Carbonate 600 MG + Vit D TAB PO SCH (09:13)
[2023-03-21] MEDS: Ramipril 5 MG CAP PO SCH (09:13)
[2023-03-21] MEDS: Gemfibrozil 600 MG TAB PO SCH (09:14)
[2023-03-21] MEDS: Sertraline 100 MG TAB PO SCH (09:14)
[2023-03-21] MEDS: Ferrous Sulfate 325 MG TAB PO SCH (09:15)
[2023-03-21] MEDS: Aspirin 81 mg Enteric Coated Tablet PO SCH (09:15)
[2023-03-21] MEDS: Gabapentin 300 MG CAP PO SCH ×2 (09:15→14:20)
[2023-03-21] MEDS: Ascorbic Acid 500 mg Chewable Tablet PO SCH (09:15)
[2023-03-21] MEDS: Fluticasone Propionate Nasal Spray 16 gm Bottle NASAL SCH (09:21)
[2023-03-21] MEDS: Famotidine 20 MG TAB PO SCH (09:21)
[2023-03-21] MEDS: traMADol HCl 50 MG TAB PO PRN (13:53)
[2023-03-21 15:19] VITALS: BP 126/66
== END 2023-03-21 15:45 | disposition home health service (06) | DRG 561 ==
LOC: NAV ACUTE 18:25
PROVIDERS: ADMIT Family Medicine; ATTEND Family Medicine
DX: S72.142D Displaced intertrochanteric fracture of left femur, subsequent encounter for closed fracture with routine healing (principal); E55.9 Vitamin D deficiency, unspecified; I10 Essential (primary) hypertension; F41.9 Anxiety disorder, unspecified; F32.A Depression, unspecified; Z66 Do not resuscitate; G47.00 Insomnia, unspecified; G25.81 Restless legs syndrome; D53.9 Nutritional anemia, unspecified; M81.0 Age-related osteoporosis without current pathological fracture; W18.30XD Fall on same level, unspecified, subsequent encounter; Z88.2 Allergy status to sulfonamides; Z91.040 Latex allergy status; Z88.8 Allergy status to other drugs, medicaments and biological substances; Z88.1 Allergy status to other antibiotic agents; Z79.899 Other long term (current) drug therapy; Z79.82 Long term (current) use of aspirin; Z90.710 Acquired absence of both cervix and uterus; Z90.89 Acquired absence of other organs; Z87.891 Personal history of nicotine dependence
CPT/HCPCS: 36415; 80048; 80053; 81001; 83036; 85025; 87086; J1650; Q0162